=== PATIENT | female | born 1955 | race Caucasian/White ===

== ENCOUNTER 2019-05-31 10:52 | Day surgery (SDC) | payer MEDICARE, SELFPAY ==
[~2019-05-31] VITALS: Ht 157.5 cm; Wt 68.2 kg
[~2019-05-31 10:52] MED LIST: ALBU90OI; ALEN70; BUDE6HFA; INCRUSE ELLI62.5 MCG; PRED10; PROLASTIN C1 MG
--- NOTE | 2019-05-31 11:25 | NUR ---
05/31/19 1125 Bubba Liang PT REFUSED LIDOCAINE FOR IV-CMT
== END 2019-05-31 13:10 | disposition home or self-care (01) ==
LOC: ORSCSDS 10:52
PROVIDERS: Internal Medicine Gastroenterology
PROC: 0DB68ZX Excision of Stomach, Via Natural or Artificial Opening Endoscopic, Diagnostic (ICD-10-PCS; principal; 2019-05-31 12:15)
PROC: 0DB98ZX Excision of Duodenum, Via Natural or Artificial Opening Endoscopic, Diagnostic (ICD-10-PCS; principal; 2019-05-31 12:15)
DX: K74.60 Unspecified cirrhosis of liver (principal); R10.13 Epigastric pain; R14.0 Abdominal distension (gaseous); R93.3 Abnormal findings on diagnostic imaging of other parts of digestive tract; J44.9 Chronic obstructive pulmonary disease, unspecified; Z79.899 Other long term (current) drug therapy
CPT/HCPCS: 88305; 88342; J2704; J7120

== ENCOUNTER → 2021-05-21 | Outpatient (CLI) | payer MEDICARE | END | disposition home or self-care (01) | LOC: LAB 11:40 → LAB SHORT 11:40 | DX: C44.519 Basal cell carcinoma of skin of other part of trunk (principal); L57.0 Actinic keratosis; L81.4 Other melanin hyperpigmentation | CPT/HCPCS: 88305 ==

== ENCOUNTER → 2022-03-11 | Outpatient (CLI) | payer MEDICARE ==
[~2022-03-11] MED LIST changes: -ALBU90OI; +ALBU90OI INH; +GEMTESA75 MG PO; -PRED10; +PRED10 PO; +PREG150 PO; +ROFL500T PO; +TRELEGY ELLIPT1 EACH INH; +[UNRECOGNIZED DRUG - CODE] IV
[2022-03-12 19:31] LABS: Creatinine Urine 44.7 mg/dL (27.00-270.00); Microalbumin, Urine Quant. 23.2 mg/L (0.000-20.000); Protein, Urine Quantitative 7.4 mg/dL (0.0-11.9)
== END | disposition home or self-care (01) ==
LOC: LAB SHORT 17:01
PROVIDERS: Internal Medicine Nephrology
DX: N18.30 Chronic kidney disease, stage 3 unspecified (principal); D63.1 Anemia in chronic kidney disease; N25.81 Secondary hyperparathyroidism of renal origin; E55.9 Vitamin D deficiency, unspecified; E78.00 Pure hypercholesterolemia, unspecified; G60.9 Hereditary and idiopathic neuropathy, unspecified; D51.8 Other vitamin B12 deficiency anemias; D52.8 Other folate deficiency anemias; R76.9 Abnormal immunological finding in serum, unspecified; R94.5 Abnormal results of liver function studies; R94.6 Abnormal results of thyroid function studies
CPT/HCPCS: 81050; 82043; 82570; 84156

== ENCOUNTER → 2022-05-13 | Outpatient (CLI) | payer MEDICARE | END | disposition home or self-care (01) | LOC: LAB 07:45 → LAB SHORT 07:45 | DX: M25.422 Effusion, left elbow (principal) | CPT/HCPCS: 88108 ==

== ENCOUNTER → 2022-08-16 | Outpatient (CLI) | payer MEDICARE | LOC: PLD 14:50 → LAB SHORT 14:50 | DX: L57.0 Actinic keratosis (principal) | CPT/HCPCS: 88305 ==

== ENCOUNTER → 2023-02-01 | Outpatient (CLI) | payer MEDICARE | END | disposition home or self-care (01) | LOC: PLD 12:35 → LAB SHORT 12:35 | DX: L98.8 Other specified disorders of the skin and subcutaneous tissue (principal) | CPT/HCPCS: 88305 ==

== ENCOUNTER 2023-06-15 08:39 | Day surgery (SDC) | payer MEDICARE ==
[~2023-06-15] VITALS: Ht 157.5 cm; Wt 59.9 kg
[2023-06-15 10:49] VITALS: BP 100/70
== END 2023-06-15 10:50 | disposition home or self-care (01) ==
LOC: ORSCSDS 08:39
PROVIDERS: Internal Medicine Gastroenterology
PROC: 0DBL8ZX Excision of Transverse Colon, Via Natural or Artificial Opening Endoscopic, Diagnostic (ICD-10-PCS; principal; 2023-06-15 10:15)
PROC: 0DBN8ZX Excision of Sigmoid Colon, Via Natural or Artificial Opening Endoscopic, Diagnostic (ICD-10-PCS; principal; 2023-06-15 10:15)
DX: R19.5 Other fecal abnormalities (principal); D12.3 Benign neoplasm of transverse colon; D12.5 Benign neoplasm of sigmoid colon; K57.30 Diverticulosis of large intestine without perforation or abscess without bleeding; Z99.81 Dependence on supplemental oxygen; Z79.899 Other long term (current) drug therapy
CPT/HCPCS: 88305; J2704; J7120

== ENCOUNTER 2023-09-07 10:39 | Day surgery (SDC) | payer MEDICARE ==
[~2023-09-07] VITALS: Ht 157.5 cm; Wt 63.9 kg
[2023-09-07 13:05] VITALS: BP 123/71
== END 2023-09-07 13:00 | disposition home or self-care (01) ==
LOC: ORSCSDS 10:39
PROVIDERS: Internal Medicine Gastroenterology
PROC: 0DJ08ZZ Inspection of Upper Intestinal Tract, Via Natural or Artificial Opening Endoscopic (ICD-10-PCS; principal; 2023-09-07 12:00)
DX: R19.5 Other fecal abnormalities (principal); K22.10 Ulcer of esophagus without bleeding; G47.33 Obstructive sleep apnea (adult) (pediatric); K74.60 Unspecified cirrhosis of liver; J44.9 Chronic obstructive pulmonary disease, unspecified; Z99.81 Dependence on supplemental oxygen; Z79.899 Other long term (current) drug therapy
CPT/HCPCS: J2001; J2704; J7120